=== PATIENT | female | born 1960 | race Two or more races ===

== ENCOUNTER 2018-03-28 15:19 | Outpatient (CLI) | payer OTHER ==
[~2018-03-28 15:19] MED LIST: PRED FORTE1 ML OP; SYNTHROID50 MCG; TOBRADEX EYE O3.5 GM OP
== END 2018-03-28 15:29 | disposition home or self-care (01) ==
LOC: MAMO-SONO 15:19
DX: Z12.31 Encounter for screening mammogram for malignant neoplasm of breast (principal); N60.11 Diffuse cystic mastopathy of right breast; E04.2 Nontoxic multinodular goiter

== ENCOUNTER 2018-03-29 08:41 | Outpatient (CLI) | payer OTHER | END 2018-03-29 08:52 | disposition home or self-care (01) | LOC: SONOGRAMA 08:41 | DX: R10.9 Unspecified abdominal pain (principal) ==

== ENCOUNTER 2018-10-17 10:15 | Outpatient (CLI) | payer OTHER | END 2018-10-17 10:58 | disposition home or self-care (01) | LOC: TOM 10:15 | DX: R10.32 Left lower quadrant pain (principal) ==

== ENCOUNTER 2018-11-21 15:16 | Outpatient (CLI) | payer OTHER | END 2018-11-21 15:27 | disposition home or self-care (01) | LOC: SONOGRAMA 15:16 | DX: N60.11 Diffuse cystic mastopathy of right breast (principal); N60.12 Diffuse cystic mastopathy of left breast; N64.51 Induration of breast; N64.52 Nipple discharge; R92.2 Inconclusive mammogram ==

== ENCOUNTER 2019-05-06 15:27 | Outpatient (CLI) | payer OTHER | END 2019-05-06 15:56 | disposition home or self-care (01) | LOC: MAMO-SONO 15:27 | DX: Z12.31 Encounter for screening mammogram for malignant neoplasm of breast (principal); Z87.898 Personal history of other specified conditions; N60.11 Diffuse cystic mastopathy of right breast; N60.12 Diffuse cystic mastopathy of left breast; R92.2 Inconclusive mammogram ==

== ENCOUNTER 2019-05-13 14:08 | Outpatient (CLI) | payer OTHER | END 2019-05-13 14:55 | disposition home or self-care (01) | LOC: NUCLEAR 14:08 | DX: M81.0 Age-related osteoporosis without current pathological fracture (principal); I10 Essential (primary) hypertension ==

== ENCOUNTER 2019-05-26 12:58 | Outpatient (CLI) | payer OTHER | END 2019-05-26 13:14 | disposition home or self-care (01) | LOC: SONOGRAMA 12:58 → MAMO-SONO 14:15 | DX: N60.11 Diffuse cystic mastopathy of right breast (principal); N60.12 Diffuse cystic mastopathy of left breast; R92.2 Inconclusive mammogram ==

== ENCOUNTER 2023-05-03 10:28 | Outpatient (CLI) | payer OTHER | END 2023-05-03 10:43 | disposition home or self-care (01) | LOC: TOM 10:28 | PROVIDERS: ATTEND Internal Medicine Cardiovascular Disease | DX: R42 Dizziness and giddiness (principal) ==

== ENCOUNTER 2024-07-17 07:41 | Outpatient (CLI) | payer OTHER | END 2024-07-17 07:42 | disposition home or self-care (01) | LOC: NUCLEAR 07:41 | PROVIDERS: ATTEND Internal Medicine | DX: C50.811 Malignant neoplasm of overlapping sites of right female breast (principal) ==

== ENCOUNTER 2025-04-13 11:02 | Outpatient (CLI) | payer OTHER | END 2025-04-13 11:04 | disposition home or self-care (01) | LOC: NUCLEAR 11:02 | PROVIDERS: ATTEND Internal Medicine | DX: I42.7 Cardiomyopathy due to drug and external agent (principal) ==

== ENCOUNTER → 2025-08-13 11:15 | Outpatient (CLI) | payer OTHER | END | disposition home or self-care (01) | LOC: NUCLEAR 11:00 | PROVIDERS: ATTEND Internal Medicine | DX: I42.7 Cardiomyopathy due to drug and external agent (principal) ==